=== PATIENT | female | born 1945 | race Caucasian/White ===

== ENCOUNTER 2022-06-11 15:02 | Outpatient (CLI) | payer OTHER | END 2022-06-11 15:03 | disposition home or self-care (01) | LOC: CSHRAD 15:02 | PROVIDERS: ATTEND Family Medicine | DX: M79.602 Pain in left arm (principal); M19.012 Primary osteoarthritis, left shoulder; M19.022 Primary osteoarthritis, left elbow ==

== ENCOUNTER 2023-10-11 11:59 | Outpatient (CLI) | payer MEDICARE | END 2023-10-11 12:00 | disposition home or self-care (01) | LOC: CSHRAD 11:59 | PROVIDERS: ATTEND Family Medicine | DX: M16.9 Osteoarthritis of hip, unspecified (principal) | CPT/HCPCS: 73521 ==